=== PATIENT | female | born 1985 | race Two or more races ===

== ENCOUNTER 2024-11-03 05:41 | Emergency (ER) | payer OTHER ==
[2024-11-03 05:48] VITALS: BP 106/64; PULSE 62; RESP 20; TEMP 98; BMI 22.1
[2024-11-03] MEDS ORDERED: diphenhydrAMINE HCL 25 MG CAPSULE (FP) PO ONE (05:51)
[2024-11-03] MEDS ORDERED: FAMOTIDINE 20 MG TABLET ONE (05:51)
[2024-11-03] MEDS ORDERED: methylPREDNISolone NA SUCC 125 MG/2 ML VIAL ONE (05:56)
[2024-11-03] MEDS: diphenhydrAMINE HCL 25 MG CAPSULE (FP) PO ONE (06:05)
[2024-11-03] MEDS: methylPREDNISolone NA SUCC 125 MG/2 ML VIAL IVPUSH ONE (06:05)
[2024-11-03] MEDS: FAMOTIDINE 20 MG TABLET PO ONE (06:05)
== END 2024-11-03 06:50 | disposition home or self-care (01) ==
LOC: JER 05:41
PROC: 3E033GC Introduction of Other Therapeutic Substance into Peripheral Vein, Percutaneous Approach (ICD-10-PCS; principal; 2024-11-03)
DX: R22.0 Localized swelling, mass and lump, head (principal); L50.0 Allergic urticaria; L29.9 Pruritus, unspecified
CPT/HCPCS: 99284-25